=== PATIENT | male | born 1995 | race Caucasian/White ===

== ENCOUNTER 2020-03-24 08:04 | Emergency (ER) | payer MEDICAID, OTHER ==
[~2020-03-24] VITALS: Ht 203.2 cm; Wt 113.0 kg
[2020-03-24] MEDS ORDERED: HYDROCODONE/ACETAMINOPHEN 5/325MG TABLET PO ONE (08:15)
[2020-03-24] MEDS ORDERED: TETANUS, DIPHTHERIA, PERTUSSIS VAC/PF 0.5ML (>7YR OLD) IM ONE (09:00)
[2020-03-24] MEDS ORDERED: BACITRACIN ZINC OINT UDPKT TOP ONE (09:00)
[2020-03-24] MEDS ORDERED: LIDOCAINE 1%/EPI 1:100,000 10 ML VIAL IJ ONE (09:00)
[2020-03-24] MEDS ORDERED: MORPHINE SULFATE 10 MG/ML CPJ IM NR (09:30)
[2020-03-24] MEDS ORDERED: CEFAZOLIN SODIUM 1000MG/VIAL IM ONE (10:45)
[2020-03-24] MEDS ORDERED: MORPHINE SULFATE 10 MG/ML CPJ IM ONE (11:30)
[2020-03-24 11:47] VITALS: BP 112/88
== END 2020-03-24 11:45 | disposition home or self-care (01) ==
LOC: ER 08:04
DX: S62.634B Displaced fracture of distal phalanx of right ring finger, initial encounter for open fracture (principal); X58.XXXA Exposure to other specified factors, initial encounter; Y93.89 Activity, other specified; Y92.89 Other specified places as the place of occurrence of the external cause; Y99.8 Other external cause status
CPT/HCPCS: 29130; 73130; 90471; 90715; 96372; 99284; J0690; J2270; J3490